=== PATIENT | female | born 1995 | race Caucasian/White ===

== ENCOUNTER → 2018-09-20 | Outpatient (CLI) | payer OTHER ==
[2018-09-20 16:27] LABS: BASO # 0.1 (0.02-0.10); EOS % 0.4 % (1.0-5.0); HEMOGLOBIN 13.5 g/dL (12.5-16.0); LYMPH# 1.7 (1.50-4.00); MEAN CELL VOLUME 89 fl (78-100); MEAN CORPUSCULAR HEMOGLOBIN 29 pg (27-31); MEAN CORPUSCULAR HGB CONC 33 g/dL (33-37); MEAN PLATELET VOLUME 9.7 fl (7.4-10.4); MONO # 0.9 (0.20-0.80); NEU # 5.7 (1.40-6.50); PLATELET COUNT 370 K/mm3 (130-400); RED BLOOD COUNT 4.62 M/mm3 (4.10-5.30); RED CELL DISTRIBUTION WIDTH 13.1 % (11.5-14.5); WHITE BLOOD COUNT 8.3 K/mm3 (4.8-10.8)
[2018-09-20 16:36] LABS: ALBUMIN 4.3 g/dL (3.5-5.0); POTASSIUM 4.1 mmol/L (3.5-5.1)
[2018-09-20 16:37] LABS: CALCIUM 9.5 mg/dL (8.3-10.5)
[2018-09-20 16:39] LABS: TOTAL PROTEIN 7.8 g/dL (6.4-8.3)
[2018-09-20 16:41] LABS: TOTAL BILIRUBIN 0.3 mg/dL (0.2-1.2)
== END ==
LOC: LAB 16:08
PROVIDERS: Physician Assistant
DX: Z00.00 Encounter for general adult medical examination without abnormal findings (principal); N63.20 Unspecified lump in the left breast, unspecified quadrant; N63.10 Unspecified lump in the right breast, unspecified quadrant; Q85.00 Neurofibromatosis, unspecified; R63.4 Abnormal weight loss; Z83.49 Family history of other endocrine, nutritional and metabolic diseases

== ENCOUNTER 2019-01-11 22:06 | Emergency (ER) | payer OTHER ==
[~2019-01-11] VITALS: Ht 152.4 cm; Wt 57.7 kg
[2019-01-11] MEDS ORDERED: PROPRANOLOL HCL40 M2 PO (22:33)
[2019-01-11 23:33] LABS: ALBUMIN 3.9 g/dL (3.5-5.0); HEMOGLOBIN 13.8 g/dL (12.5-16.0); MEAN CELL VOLUME 90 fl (78-100); MEAN CORPUSCULAR HEMOGLOBIN 30 pg (27-31); MEAN CORPUSCULAR HGB CONC 33 g/dL (33-37); MEAN PLATELET VOLUME 10.1 fl (7.4-10.4); PLATELET COUNT 402 K/mm3 (130-400); RED BLOOD COUNT 4.68 M/mm3 (4.10-5.30); RED CELL DISTRIBUTION WIDTH 13.1 % (11.5-14.5); WHITE BLOOD COUNT 17.8 K/mm3 (4.8-10.8)
[2019-01-11 23:34] LABS: POTASSIUM 3.9 mmol/L (3.5-5.1)
[2019-01-11 23:35] LABS: CALCIUM 9.1 mg/dL (8.3-10.5)
[2019-01-11 23:36] LABS: TOTAL PROTEIN 6.4 g/dL (6.4-8.3)
[2019-01-11 23:38] LABS: TOTAL BILIRUBIN 0.3 mg/dL (0.2-1.2)
[2019-01-12 00:26] LABS: URINE APPEARANCE HAZY; URINE COLOR YELLOW; URINE PROTEIN(semi-quant) TRACE mg/dL (NEGATIVE)
[2019-01-12 00:27] LABS: URINE BILIRUBIN NEGATIVE (NEGATIVE); URINE BLOOD TRACE (NEGATIVE); URINE GLUCOSE NEGATIVE (NEGATIVE); URINE KETONE NEGATIVE (NEGATIVE); URINE NITRATE NEGATIVE (NEGATIVE); URINE UROBILINOGEN NORMAL (NORMAL); URINE WBC 0-1 /hpf (0-3)
[2019-01-12 00:31] LABS: URINE LEUKOCYTE ESTERASE TRACE (NEGATIVE)
[2019-01-12 00:45] LABS: LYMPHOCYTE 14 % (20-51); MONOCYTE 5 % (3-10); NEUTROPHILS 81 % (42-75)
[2019-01-12] MEDS ORDERED: LORAZEPAM0.5 M1 PO (01:10)
[2019-01-12 01:30] VITALS: BP 153/94
== END 2019-01-12 01:30 | disposition home or self-care (01) ==
LOC: ED 22:06
PROVIDERS: Family Medicine
DX: F41.9 Anxiety disorder, unspecified (principal); I10 Essential (primary) hypertension; R11.2 Nausea with vomiting, unspecified
CPT/HCPCS: J2060

== ENCOUNTER → 2023-12-18 | Outpatient (CLI) | payer BC ==
[~2023-12-18] MED LIST: LORAZEPAM0.5 M1 PO; PROPRANOLOL HCL40 M2 PO
[2023-12-18 12:32] LABS: BASO # 0.02 K/mm3 (0.02-0.10); EOS # 0.06 K/mm3 (0.04-0.40); EOS % 0.8 % (1.0-5.0); HEMATOCRIT 41.2 % (37.0-47.0); HEMOGLOBIN 13.5 g/dL (12.5-16.0); LYMPH# 1.71 K/mm3 (1.50-4.00); MEAN CELL VOLUME 91 fl (78-100); MEAN CORPUSCULAR HEMOGLOBIN 30 pg (27-31); MEAN CORPUSCULAR HGB CONC 33 g/dL (33-37); MONO # 0.48 K/mm3 (0.20-0.80); NEU # 5.45 K/mm3 (1.40-6.50); PLATELET COUNT 450 K/mm3 (130-400); RED BLOOD COUNT 4.53 M/mm3 (4.10-5.30); RED CELL DISTRIBUTION WIDTH 12.2 % (11.5-14.5); WHITE BLOOD COUNT 7.8 K/mm3 (4.8-10.8)
[2023-12-18 12:38] LABS: ALBUMIN 3.8 g/dL (3.5-5.0)
[2023-12-18 12:39] LABS: CALCIUM 8.9 mg/dL (8.3-10.5)
[2023-12-18 12:40] LABS: TOTAL PROTEIN 6.9 g/dL (6.4-8.3)
[2023-12-18 12:42] LABS: TOTAL BILIRUBIN 0.3 mg/dL (0.2-1.2)
== END ==
LOC: LAB 11:42
PROVIDERS: Physician Assistant
DX: Z13.1 Encounter for screening for diabetes mellitus (principal); Z13.220 Encounter for screening for lipoid disorders; Z13.29 Encounter for screening for other suspected endocrine disorder; I10 Essential (primary) hypertension; K90.9 Intestinal malabsorption, unspecified